=== PATIENT | female | born 1950 | race Caucasian/White ===

== ENCOUNTER → 2022-03-04 08:45 | Outpatient (CLI) | payer MEDICARE, OTHER, SELFPAY ==
--- NOTE | 2022-03-04 | DI.RAD.S_ITS ---
PROCEDURE: FL JOINT INJECTION LARGE RT INDICATIONS: Bilateral primary osteoarthritis of right hip COMPARISON: None. TECHNIQUE: The indications, alternatives, benefits, risks, and complications of the procedure were explained to the patient. Written informed consent was obtained and placed in the chart. The patient was placed in an appropriate position on the fluoroscopy table, and a site was chosen for percutaneous access under fluoroscopic guidance. The site was prepped and draped in a sterile fashion. Local anesthetic was administered using a 1% lidocaine solution. A hypodermic or spinal needle was then used to access the symptomatic joint. Intra-articular location of the needle tip was confirmed by injecting a small amount of contrast, followed by steroid administration. The needle was then withdrawn, and a bandage applied to the puncture site. FINDINGS: Joint injected: Right hip Medications injected: 4 mL of 40 mg/mL Kenalog and 0.5% Ropivacaine mixture. Patient's pain before injection: 9 out of 10. Patient's pain after injection: 0 out of 10. Complications: None. IMPRESSION: Successful fluoroscopically guided administration of steroid and anaesthetic solution into the right joint. Dictated by: Sonny Almonte M.D. on 03/04/2022 at 10:11 Approved by: Sonny Almonte M.D. on 03/04/2022 at 10:12
== END ==
PROVIDERS: PCP Internal Medicine; Referring Provider Counselor Mental Health; Visit Provider Counselor Mental Health
DX: M16.0 Bilateral primary osteoarthritis of hip (principal)
CPT/HCPCS: 20610

== ENCOUNTER → 2022-05-07 09:16 | Outpatient (CLI) | payer MEDICARE, OTHER, MEDICAID, SELFPAY ==
--- NOTE | 2022-05-07 | DI.RAD.S_ITS ---
PROCEDURE: FL UPPER GI W AIR INDICATIONS: Dysphagia, oropharyngeal phase COMPARISON: None. 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 No suspicious abdominal calcifications. Visualized solid organ contours appear normal. Bony structures appear unremarkable. Esophagus: Esophageal mucosa is normal on air-contrast views. On single-contrast views, there is normal esophageal peristalsis. There is small to moderate size hiatal hernia with herniated portion of the stomach showing mass effect on the adjacent distal esophagus just proximal to GE junction. Moderate grade stenosis involving distal esophagus in this area is seen. No other area of significant stenosis. No intraluminal filling defect or ulceration. Significant elicited gastroesophageal reflux is noted throughout the study. There is slight delayed transit of calibrated barium tablet through the esophagus at the level of most proximal esophagus. Stomach: Rest of the stomach is normally distensible, with normal rugal fold thickness. No mucosal masses or ulcers. Pylorus and duodenal bulb appear normal in morphology. Duodenal folds are normal in thickness as well. IMPRESSION: 1. Moderate-sized hiatal hernia with mass effect on adjacent most distal esophageal lumen causing moderate esophageal luminal narrowing which could represent postsurgical changes, suggest clinical correlation. No gross intraluminal filling defect or large ulceration is seen in esophageal lumen. 2. No abnormality is seen in rest of the stomach and proximal duodenum. 3. Significant gastroesophageal reflux. 4. Slightly delayed transit of barium tablet through the esophagus at the level of proximal esophagus. Consider correlation with patient's clinical and surgical history and possible endoscopic evaluation . Dictated by: Asher Narayan M.D. on 05/07/2022 at 10:58 Approved by: Asher Narayan M.D. on 05/07/2022 at 11:04
== END ==
PROVIDERS: PCP Internal Medicine; Referring Provider Internal Medicine Gastroenterology; Visit Provider Internal Medicine Gastroenterology
DX: R13.12 Dysphagia, oropharyngeal phase (principal); K44.9 Diaphragmatic hernia without obstruction or gangrene; K21.9 Gastro-esophageal reflux disease without esophagitis
CPT/HCPCS: 74246

== ENCOUNTER → 2022-06-02 10:44 | Outpatient (CLI) | payer MEDICARE, OTHER, MEDICAID, SELFPAY ==
--- NOTE | 2022-06-02 10:49 | DI.CT.S_ITS ---
PROCEDURE: CT ABDOMEN PELVIS W CON INDICATIONS: Diarrhea, unspecified TECHNIQUE: After the administration of oral and intravenous contrast, axial sections were acquired from the lung bases to the pubic symphysis. Coronal and sagittal reformats were performed. For radiation dose reduction, the following was used: automated exposure control, adjustment of mA and/or kV according to patient size. COMPARISON:None. FINDINGS: Image quality: Excellent. Lung bases: Lung bases are clear. Heart size is normal. Solid organs: Liver: The liver has no mass or intrahepatic biliary ductal dilatation. The portal vein and hepatic veins are patent. Biliary: The gallbladder has no gallstones, pericholecystic fluid, gallbladder wall thickening, or surrounding inflammatory change. Pancreas: The pancreas has no mass or ductal dilatation. There is no surrounding inflammation. Spleen: Normal size. There are no masses. Adrenals: No hypertrophy or nodules. Kidneys: No obstructive calculus or hydronephrosis. No solid mass. No cystic mass. Peritoneum and bowel: Small hiatal hernia, otherwise the distal esophagus and stomach are normal. The small bowel has a normal caliber and appearance. The terminal ileum is normal. The large bowel has diverticulosis with no evidence of diverticulitis. The appendix is normal. No free fluid or air. Nodes and vessels: No retroperitoneal or mesenteric adenopathy by size criteria. Aorta and inferior vena cava are normal in size. Miscellaneous: No abdominal wall mass or hernia. PELVIS: Genitourinary: The bladder has no wall thickening or mass. No bladder calcifications. Bones: No suspicious bony lesions. Degenerative changes with no focal abnormality. No vertebral body compression fractures. IMPRESSION: 1. No acute abdominal or pelvic abnormality. 2. Diverticulosis without evidence of diverticulitis. 3. Small hiatal hernia. Dictated by: Walter Huntley M.D. on 06/02/2022 at 13:04 Approved by: Walter Huntley M.D. on 06/02/2022 at 13:11
[2022-06-02 11:49] LABS: BUN Creatinine Ratio 12.5 (6-22); Blood Urea Nitrogen 9 mg/dL (7-17); Estimated Glomerular Filt Rate > 60 mL/min (>60)
== END ==
PROVIDERS: PCP Internal Medicine; Referring Provider Internal Medicine Gastroenterology; Visit Provider Internal Medicine Gastroenterology
DX: R93.89 Abnormal findings on diagnostic imaging of other specified body structures (principal); K22.89 Other specified disease of esophagus; R19.7 Diarrhea, unspecified; K44.9 Diaphragmatic hernia without obstruction or gangrene; K57.30 Diverticulosis of large intestine without perforation or abscess without bleeding
CPT/HCPCS: 36415; 74177; 82565; 84520; Q9967